=== PATIENT | male | born 1970 | race Caucasian/White ===

== ENCOUNTER 2022-05-29 15:39 | Emergency (ER) | payer OTHER ==
[~2022-05-29] VITALS: Ht 185.4 cm; Wt 92.5 kg
[~2022-05-29 15:39] MED LIST: DOCU100 PO; DULO60; FENT75TP; HYDR1TAB94; PROM25 PO
[2022-05-29] MEDS ORDERED: PREG200 PO (16:26)
[2022-05-30] MEDS ORDERED: METPRE4DP PO (01:54)
[2022-05-30] MEDS ORDERED: Percocet 5-3251 EACH PO (01:54)
== END 2022-05-29 18:00 | disposition home or self-care (01) ==
LOC: ER 15:39
DX: M54.30 Sciatica, unspecified side (principal); Z88.8 Allergy status to other drugs, medicaments and biological substances; Z88.0 Allergy status to penicillin; Z79.899 Other long term (current) drug therapy; Z79.891 Long term (current) use of opiate analgesic
CPT/HCPCS: J1885

== ENCOUNTER 2022-05-29 23:50 | Emergency (ER) | payer OTHER ==
[~2022-05-29] VITALS: Ht 175.3 cm; Wt 83.9 kg
[~2022-05-29 23:50] MED LIST changes: +PREG200 PO
[2022-05-30] MEDS ORDERED: METPRE4DP PO (01:54)
[2022-05-30] MEDS ORDERED: Percocet 5-3251 EACH PO (01:54)
== END 2022-05-30 05:35 | disposition home or self-care (01) ==
LOC: ER 23:50
DX: M54.42 Lumbago with sciatica, left side (principal); B34.9 Viral infection, unspecified; Z88.8 Allergy status to other drugs, medicaments and biological substances; Z88.0 Allergy status to penicillin; Z79.899 Other long term (current) drug therapy; Z79.891 Long term (current) use of opiate analgesic; K21.9 Gastro-esophageal reflux disease without esophagitis
CPT/HCPCS: A9270; J1170; J1885; J2405; J2930

== ENCOUNTER 2022-10-19 05:41 | Day surgery (SDC) | payer OTHER ==
[~2022-10-19] VITALS: Ht 185.4 cm; Wt 90.3 kg
[2022-10-19] VITALS (21 sets, daily range): BP systolic 113–147; BP diastolic 69–98
[~2022-10-19 05:41] MED LIST changes: +DULO60 PO; +MASOPHEN500 M2 PO; +METPRE4DP PO; +Percocet 5-3251 EACH PO
[2022-10-19] MEDS ORDERED: CELE100 PO (16:22)
--- NOTE | 2022-10-19 17:48 | NUR ---
SHIFT SUMMARY POD 0 L TOTAL ANTERIOR HIP. INCISION C/D/I. PT A&OX4. VS WNL. O2 SAT >95% ON RA. PAIN WITHIN ACCEPTABLE LIMITS, MEDICATED PER EMAR AND USE OF ICE. PT STANDBY ASSIST FOR AMBULATION, WORKED WILL WITH PT. RECONCILED HOME MEDS WITH PATIENT VIA [facility]. PT USING URINAL INDEPENDENTLY. SPOUSE SPENT MOST OF AFTERNOON IN PT ROOM. IN BED COMFORTABLY, WITH CALL LIGHT WITHIN REACH. WILL REPORT TO [facility] NURSE.
[2022-10-20 00:26] VITALS: BP 122/74
[2022-10-20 04:05] LABS: BASOPHILS ABSOLUTE AUTO 0.01 K/mm3 (0.00-0.23); BASOPHILS PERCENT AUTO 0 % (0-2); EOSINOPHILS ABSOLUTE AUTO 0.01 K/mm3 (0.00-0.68); EOSINOPHILS PERCENT AUTO 0 % (0-6); Hematocrit 38.1 % (37.0-53.0); Hemoglobin 13.4 g/dL (13.5-17.5); IMMATURE GRAN ABSOLUTE AUTO 0.03 K/mm3 (0.00-0.10); IMMATURE GRAN PERCENT AUTO 0 % (0-1); LYMPHOCYTES ABSOLUTE AUTO 1.43 K/mm3 (0.84-5.20); LYMPHOCYTES PERCENT AUTO 16 % (21-46); MONOCYTES ABSOLUTE AUTO 0.94 K/mm3 (0.16-1.47); MONOCYTES PERCENT AUTO 11 % (4-13); Mean Corpuscular HGB 31.2 pg (26.0-34.0); Mean Corpuscular HGB Conc 35.2 g/dL (31.5-36.5); Mean Corpuscular Volume 89 fL (80-100); Mean Platelet Volume 10.7 fL (9.1-12.4); NEUTROPHILS ABSOLUTE AUTO 6.46 K/mm3 (1.96-9.15); NEUTROPHILS PERCENT AUTO 73 % (41-73); Platelet Count 192 K/mm3 (150-400); White Blood Cell Count 8.88 K/mm3 (4.00-11.30)
[2022-10-20 04:26] LABS: Bun/Creatinine Ratio 16.8 (12.0-20.0); Calcium, Blood 8.2 mg/dL (8.5-10.1); Creatinine, Blood 0.95 mg/dL (0.60-1.20); Magnesium, Blood 2.1 mg/dL (1.6-2.4); Potassium, Blood 3.5 mmol/L (3.5-5.5)
--- NOTE | 2022-10-20 05:41 | NUR ---
SHIFT SUMMARY A/O X4- AMBULATING W/ SBA, FWW, AND GB. POD1 L TOTAL ANT HIP- PRINEO C/D/I. VOIDING WELL. PAIN MANAGED W/ PO PAIN MEDICATIONS. VITAL SIGNS STABLE. NO ACUTE CHANGES THROUGHOUT SHIFT. WILL CONTINUE TO MONITOR AND REPORT TO ONCOMING RN.
[2022-10-20 07:20] VITALS: BP 122/80
[2022-10-20] MEDS ORDERED: SULTRIDS PO (07:50)
[2022-10-20] MEDS ORDERED: OXYC5 PO (07:50)
[2022-10-20] MEDS ORDERED: ASPI81CH PO (07:51)
--- NOTE | 2022-10-20 08:45 | NUR ---
10/20/22 0845 Leigh Miles VERIFICATIONS: EDIT CHART.
--- NOTE | 2022-10-20 10:15 | NUR ---
DISCHARGE PATIENT CLEARED THERAPY WELL. PRENIO DRESSING TO LEFT HIP, C/D/I. EATING, DRINKING, & VOIDING WELL. PAIN MANAGED WELL PER EMAR. AMBULATING WELL W/ FWW & GB. DISCUSSED DISCHARGE INSTRUCTIONS WITH PATIENT AND PATIENTS BROTHER AT BEDSIDE. SENT WITH PATIENT. SENT POLAR PACK AND AQUACEL DRESSINGS WITH PATIENT. ESCORTED OUT VIA W/C.
== END 2022-10-20 10:15 | disposition home or self-care (01) ==
LOC: ORSCMMR 05:41 → ORD 07:30 → SURS 10:48 → ORSCMMR 10-20 10:15 → ORD 11-09 10:45
PROVIDERS: Orthopaedic Surgery
PROC: 0SRB0JA Replacement of Left Hip Joint with Synthetic Substitute, Uncemented, Open Approach (ICD-10-PCS; principal; 2022-10-19 07:30)
DX: M16.12 Unilateral primary osteoarthritis, left hip (principal); Z87.891 Personal history of nicotine dependence; J44.9 Chronic obstructive pulmonary disease, unspecified; K21.9 Gastro-esophageal reflux disease without esophagitis; Z79.899 Other long term (current) drug therapy
CPT/HCPCS: 36415; 72170; 80048; 83735; 85025; 97110; 97116; 97162; A9270; C1776; J0171; J0690; J0735; J1170; J1885; J2250; J2704; J2795; J3010; J3370; J7120

== ENCOUNTER 2022-11-15 13:15 | Emergency (ER) | payer OTHER ==
[~2022-11-15] VITALS: Ht 182.9 cm; Wt 90.7 kg
[~2022-11-15 13:15] MED LIST changes: +ASPI81CH PO; +CELE100 PO; +OXYC5 PO; +SULTRIDS PO
[2022-11-15 15:04] VITALS: BP 109/73
[2022-11-15] MEDS ORDERED: PRED20 PO (17:26)
[2022-11-15] MEDS ORDERED: Robaxin750 MG PO (17:26)
== END 2022-11-15 17:35 | disposition home or self-care (01) ==
LOC: ER 13:15
DX: M54.42 Lumbago with sciatica, left side (principal); Z88.8 Allergy status to other drugs, medicaments and biological substances; Z88.0 Allergy status to penicillin; Z79.899 Other long term (current) drug therapy; Z79.82 Long term (current) use of aspirin
CPT/HCPCS: A9270; J1170; J1885; J7512

== ENCOUNTER 2023-08-01 15:30 | Emergency (ER) | payer OTHER ==
[~2023-08-01] VITALS: Ht 185.4 cm; Wt 86.2 kg
[~2023-08-01 15:30] MED LIST changes: +PRED20 PO; +Robaxin750 MG PO
[2023-08-01] MEDS ORDERED: Ondansetron HCl 2 MG / ML 2ML Vial IV ONE (16:05)
[2023-08-01] MEDS ORDERED: NS 1,000 ML IV SCH (16:05)
[2023-08-01 16:41] LABS: BASOPHILS ABSOLUTE AUTO 0.04 K/mm3 (0.00-0.23); BASOPHILS PERCENT AUTO 0 % (0-2); EOSINOPHILS PERCENT AUTO 0 % (0-6); Hematocrit 52.1 % (37.0-53.0); Hemoglobin 18.6 g/dL (13.5-17.5); IMMATURE GRAN ABSOLUTE AUTO 0.07 K/mm3 (0.00-0.10); IMMATURE GRAN PERCENT AUTO 0 % (0-1); LYMPHOCYTES ABSOLUTE AUTO 0.79 K/mm3 (0.84-5.20); LYMPHOCYTES PERCENT AUTO 4 % (21-46); MONOCYTES ABSOLUTE AUTO 0.62 K/mm3 (0.16-1.47); MONOCYTES PERCENT AUTO 3 % (4-13); Mean Corpuscular HGB 31.3 pg (26.0-34.0); Mean Corpuscular HGB Conc 35.7 g/dL (31.5-36.5); Mean Corpuscular Volume 88 fL (80-100); Mean Platelet Volume 11.6 fL (9.1-12.4); NEUTROPHILS ABSOLUTE AUTO 16.67 K/mm3 (1.96-9.15); NEUTROPHILS PERCENT AUTO 92 % (41-73); Platelet Count 251 K/mm3 (150-400); RDW Coefficient Variation 12.6 % (11.7-14.2); RDW Standard Deviation 40.7 fL (35.1-46.3); Red Blood Cell Count 5.95 M/mm3 (4.30-5.90); White Blood Cell Count 18.19 K/mm3 (4.00-11.30)
[2023-08-01 17:06] LABS: Albumin, Blood 4.7 g/dL (3.4-5.0); Albumin/Globulin Ratio 1.1 (0.8-1.8); Bilirubin, Total 1.2 mg/dL (0.1-1.0); Bun/Creatinine Ratio 25.5 (12.0-20.0); Calcium, Blood 9.9 mg/dL (8.5-10.1); Creatinine, Blood 1.06 mg/dL (0.60-1.20); Globulin, Blood 4.1 g/dL (2.2-4.0); Potassium, Blood 4.1 mmol/L (3.5-5.5); Total Protein, Blood 8.8 g/dL (6.4-8.2)
[2023-08-01] MEDS ORDERED: Metoclopramide HCl 5MG / ML 2ML Vial IV ONE (17:20)
[2023-08-01] MEDS ORDERED: Prochlorperazine Edisylate 10 mg Vial IV ONE (18:30)
[2023-08-01] MEDS ORDERED: PROC5 PO (19:53)
[2023-08-01 20:06] VITALS: BP 137/64
== END 2023-08-01 20:06 | disposition home or self-care (01) ==
LOC: ER 15:30
PROVIDERS: Physician Assistant
DX: K52.9 Noninfective gastroenteritis and colitis, unspecified (principal); Z88.8 Allergy status to other drugs, medicaments and biological substances; Z88.0 Allergy status to penicillin; Z79.899 Other long term (current) drug therapy; Z79.82 Long term (current) use of aspirin; K21.9 Gastro-esophageal reflux disease without esophagitis
CPT/HCPCS: 80053; 83690; 83735; 85025; 96361; 96374; 96375; 99284-25; J0780; J2405; J2765; J7030

== ENCOUNTER 2024-09-24 13:59 | Emergency (ER) | payer OTHER ==
[~2024-09-24] VITALS: Ht 185.4 cm; Wt 86.2 kg
[~2024-09-24 13:59] MED LIST changes: +ONDA4ODT MM; +PROC5 PO
[2024-09-24 14:02] VITALS: BP 151/106
[2024-09-24] MEDS ORDERED: Ondansetron HCl 2 MG / ML 2ML Vial IV PRN (14:05)
[2024-09-24 14:51] LABS: BASOPHILS ABSOLUTE AUTO 0.04 K/mm3 (0.00-0.23); BASOPHILS PERCENT AUTO 0 % (0-2); EOSINOPHILS ABSOLUTE AUTO 0.01 K/mm3 (0.00-0.68); EOSINOPHILS PERCENT AUTO 0 % (0-6); Hematocrit 49.1 % (37.0-53.0); Hemoglobin 17.9 g/dL (13.5-17.5); IMMATURE GRAN ABSOLUTE AUTO 0.02 K/mm3 (0.00-0.10); IMMATURE GRAN PERCENT AUTO 0 % (0-1); LYMPHOCYTES ABSOLUTE AUTO 1.12 K/mm3 (0.84-5.20); LYMPHOCYTES PERCENT AUTO 10 % (21-46); MONOCYTES ABSOLUTE AUTO 0.52 K/mm3 (0.16-1.47); MONOCYTES PERCENT AUTO 5 % (4-13); Mean Corpuscular HGB 31.6 pg (26.0-34.0); Mean Corpuscular HGB Conc 36.5 g/dL (31.5-36.5); Mean Corpuscular Volume 87 fL (80-100); Mean Platelet Volume 11.8 fL (9.1-12.4); NEUTROPHILS ABSOLUTE AUTO 9.08 K/mm3 (1.96-9.15); NEUTROPHILS PERCENT AUTO 84 % (41-73); Platelet Count 270 K/mm3 (150-400); RDW Coefficient Variation 12.1 % (11.7-14.2); RDW Standard Deviation 38.3 fL (35.1-46.3); Red Blood Cell Count 5.66 M/mm3 (4.30-5.90); White Blood Cell Count 10.79 K/mm3 (4.00-11.30)
[2024-09-24 15:14] LABS: Albumin, Blood 4.8 g/dL (3.4-5.0); Albumin/Globulin Ratio 1.4 (0.8-1.8); Bilirubin, Total 1.2 mg/dL (0.1-1.0); Bun/Creatinine Ratio 21.4 (12.0-20.0); Calcium, Blood 9.8 mg/dL (8.5-10.1); Creatinine, Blood 1.03 mg/dL (0.60-1.20); Globulin, Blood 3.5 g/dL (2.2-4.0); Potassium, Blood 3.9 mmol/L (3.5-5.5); Total Protein, Blood 8.3 g/dL (6.4-8.2)
[2024-09-24] MEDS ORDERED: NS 1,000 ML IV SCH (15:30)
[2024-09-24] MEDS ORDERED: Promethazine HCl 25 MG Supp PR ONE (15:30)
[2024-09-24] MEDS ORDERED: Haloperidol Lactate Inj. 5 MG/ML Injection IV ONE (16:40)
[2024-09-24] MEDS ORDERED: PHENERGAN25 MG PR (16:59)
== END 2024-09-24 17:13 | disposition home or self-care (01) ==
LOC: ER 13:59
PROVIDERS: Emergency Medicine
DX: R11.2 Nausea with vomiting, unspecified (principal); F12.90 Cannabis use, unspecified, uncomplicated; K21.9 Gastro-esophageal reflux disease without esophagitis; Z88.6 Allergy status to analgesic agent; Z88.0 Allergy status to penicillin; Z79.899 Other long term (current) drug therapy
CPT/HCPCS: 80053; 83690; 85025; 93005; 93010; 96374; 96375; 99284-25; A9270; J1630; J2405; J7030

== ENCOUNTER 2025-01-17 20:48 | Emergency (ER) | payer OTHER ==
[~2025-01-17] VITALS: Ht 185.4 cm; Wt 88.5 kg
[~2025-01-17 20:48] MED LIST changes: +PHENERGAN25 MG PR
[2025-01-17 21:16] LABS: BASOPHILS ABSOLUTE AUTO 0.02 K/mm3 (0.00-0.23); BASOPHILS PERCENT AUTO 0 % (0-2); EOSINOPHILS ABSOLUTE AUTO 0.01 K/mm3 (0.00-0.68); EOSINOPHILS PERCENT AUTO 0 % (0-6); Hematocrit 43.6 % (37.0-53.0); Hemoglobin 15.8 g/dL (13.5-17.5); IMMATURE GRAN ABSOLUTE AUTO 0.05 K/mm3 (0.00-0.10); IMMATURE GRAN PERCENT AUTO 0 % (0-1); LYMPHOCYTES ABSOLUTE AUTO 1.23 K/mm3 (0.84-5.20); LYMPHOCYTES PERCENT AUTO 8 % (21-46); MONOCYTES ABSOLUTE AUTO 1.45 K/mm3 (0.16-1.47); MONOCYTES PERCENT AUTO 10 % (4-13); Mean Corpuscular HGB Conc 36.2 g/dL (31.5-36.5); Mean Corpuscular Volume 87 fL (80-100); NEUTROPHILS ABSOLUTE AUTO 11.84 K/mm3 (1.96-9.15); NEUTROPHILS PERCENT AUTO 81 % (41-73); NRBC ABSOLUTE 0.00 K/mm3 (0.00-0.02); NRBC Auto 0.0 /100 WBC (0.0-0.2); Platelet Count 208 K/mm3 (150-400); RDW Coefficient Variation 12.1 % (11.7-14.2); RDW Standard Deviation 38.8 fL (35.1-46.3)
[2025-01-17 21:38] LABS: Alanine Aminotransfer (ALT/SGP 47.0 U/L (12-78); Albumin, Blood 4.6 g/dL (3.4-5.0); Albumin/Globulin Ratio 1.2 (0.8-1.8); Anion Gap 13.0 mmol/L (3-11); Aspartate Aminotrans (AST/SGOT 48.0 U/L (12-37); Bilirubin, Total 2.2 mg/dL (0.1-1.0); Blood Urea Nitrogen 29.0 mg/dL (8-24); CO2, Blood 31.0 mmol/L (21-32); Calcium, Blood 9.5 mg/dL (8.5-10.1); Chloride, Blood 89.0 mmol/L (98-108); Creatinine, Blood 1.11 mg/dL (0.60-1.20); Globulin, Blood 3.7 g/dL (2.2-4.0); Glucose, Blood 140.0 mg/dL (70-99); Potassium, Blood 3.0 mmol/L (3.5-5.5); Sodium, Blood 130.0 mmol/L (136-145); Total Protein, Blood 8.3 g/dL (6.4-8.2)
[2025-01-17] MEDS ORDERED: NS 1,000 ML IV SCH (23:35)
[2025-01-17] MEDS ORDERED: DiphenhydrAMINE HCl 50 MG/ML 1ML Vial IV ONE (23:35)
[2025-01-17] MEDS ORDERED: Haloperidol Lactate Inj. 5 MG/ML Injection IV ONE (23:35)
[2025-01-18 01:00] VITALS: BP 150/89
[2025-01-18] MEDS ORDERED: Ondansetron HCl 2 MG / ML 2ML Vial IV ONE (01:25)
[2025-01-18] MEDS ORDERED: ONDA4 PO (02:44)
[2025-01-18] MEDS ORDERED: POTA10T PO (02:44)
== END 2025-01-18 03:08 | disposition home or self-care (01) ==
LOC: ER 20:48
PROVIDERS: Emergency Medicine
DX: R11.2 Nausea with vomiting, unspecified (principal); F12.90 Cannabis use, unspecified, uncomplicated; R10.9 Unspecified abdominal pain; E87.6 Hypokalemia; E87.1 Hypo-osmolality and hyponatremia; E87.8 Other disorders of electrolyte and fluid balance, not elsewhere classified; K21.9 Gastro-esophageal reflux disease without esophagitis; Z87.891 Personal history of nicotine dependence; Z88.6 Allergy status to analgesic agent; Z88.0 Allergy status to penicillin; Z79.899 Other long term (current) drug therapy
CPT/HCPCS: 76705; 80053; 83690; 85025; 96361; 96374; 96375; 99284-25; A9270; J1200; J1630; J2405; J7030